=== PATIENT | male | born 1960 | race Caucasian/White ===

== ENCOUNTER → 2018-07-20 | Outpatient (REF) ==
--- NOTE | 2018-07-21 03:32 | REP ---
Clinical: Chronic pain. Technique: AP, lateral, bilateral oblique views of the left foot. Findings: Age-related degenerative changes include subchondral sclerosis along with mild joint space narrowing primarily involving the interphalangeal joints as well as the midfoot. Lateral view demonstrates small anterior talar beak at the talonavicular joint as well as small calcaneal heal spur. No acute fracture or dislocation. No subcutaneous emphysema or radiodense foreign body. Impression: Moderate age-related degenerative changes. Electronically Signed by Mark Toribio MD 07/21/2018 03:24 A
--- NOTE | 2018-07-21 03:38 | REP ---
Clinical: Pain and disability. Technique: AP, lateral, coned-down views of the lumbosacral spine. Findings: Alignment and lordosis are maintained. There is no evidence for acute fracture / compression injury or subluxation. Mild degenerative changes include multilevel endplate sclerosis as well as mild disc space narrowing at L5-S1 with hypertrophic facet change. Impression: Mild multilevel degenerative changes primarily involving the L5-S1 level. Electronically Signed by Mark Toribio MD 07/21/2018 03:30 A
== END ==
LOC: M SMT 10:22
PROVIDERS: ATTEND Internal Medicine
DX: Z02.71 Encounter for disability determination (principal)